=== PATIENT | female | born 2000 | race Caucasian/White ===

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

== ENCOUNTER → 2022-03-13 12:14 | Outpatient (BNVA) | payer BC, MEDICAID, SELFPAY | PROVIDERS: PCP Family Medicine; Visit Provider Family Medicine | DX: Z30.42 Encounter for surveillance of injectable contraceptive (principal) | CPT/HCPCS: 84702 ==

== ENCOUNTER → 2023-01-06 16:05 | Outpatient (BNVA) | payer BC, MEDICAID, SELFPAY | PROVIDERS: PCP Family Medicine; Visit Provider Nurse Practitioner Family | DX: Z30.09 Encounter for other general counseling and advice on contraception (principal) | CPT/HCPCS: 81025 ==

== ENCOUNTER 2023-05-31 02:06 | Emergency (ER) | payer BC, MEDICAID, SELFPAY ==
[2023-05-31 02:12] VITALS: BP 96/81; PULSE 85; RESP 16; TEMP 36.4; O2SAT 98; BMI 27.3
--- NOTE | 2023-05-31 02:34 | XRR_ITS ---
PROCEDURE INFORMATION: Exam: XR Chest Exam date and time: 05/31/2023 2:38 AM Age: 23 years old Clinical indication: Cough; Additional info: Cough, post-tussive emesis TECHNIQUE: Imaging protocol: Radiologic exam of the chest. Views: 1 view. COMPARISON: No relevant prior studies available. FINDINGS: Lungs: The lung bases are suboptimally assessed due to technique however the upper lungs are clear of focal consolidation. Pleural spaces: Unremarkable. No pleural effusion. No pneumothorax. Heart/Mediastinum: Cardiac silhouette appears normal in size. No obvious vascular congestion. Bones/joints: No acute osseous findings. Other findings: Single view was submitted. XR/XR chest 1V portable [id number] IMPRESSION: No obvious acute consolidation. Suboptimal lung base assessment. Followup including lateral view may be obtained if clinically indicated.
[2023-05-31] MEDS: dexamethasone 4 mg Tablet 10 MG PO (02:44)
[2023-05-31] MEDS: guaiFENesin-codeine UDC 10 mL PO (02:45)
[2023-05-31] MEDS: lidocaine 2% viscous 15 ML, aluminum-mag hydrox-simethicon 30 ML, sucralfate oral liq 1 GM PO (02:45)
[2023-05-31 02:46] VITALS: BP 100/80; PULSE 113; RESP 16; O2SAT 98
--- NOTE | 2023-05-31 02:48 | W.ED.URI ---
HPI - URI/Sore Throat General: Chief Complaint: Upper Respiratory Infection Stated Complaint: thoat / head / chest pain Time Seen by Provider: 05/31/23 02:08 Source: patient History of Present Illness: 23-year-old female who says she has had a cough for 2 weeks. She presents after multiple episodes of posttussive emesis this morning. She says that her cough has been so bad she vomits and has done so several times. She is also complaining of a burning throat pain as well as bilateral ear pain. No fever MD elicited complaint: cough, sore throat, rhinorrhea and nasal congestion Onset (ago): hour(s) Consistency: constant Severity: moderate Description of mucous: clear Able to tolerate fluids by mouth: No (Not for the past couple of hours) Exacerbating factors: swallowing and deep breaths Relieving factors: NSAID Associated symptoms: Reports chest pain (Tightness), cough, fever(s), headache(s) ( From coughing ), nausea, rhinorrhea, short of breath, sore throat and vomiting; Deny abdominal pain, change in voice, chills or congestion Review of Systems Const: Reports: fever(s); Denies: chills ENMT: Reports: throat pain Card: Reports: chest pain (Tightness) Resp: Reports: non-productive cough; Denies: dyspnea GI: Reports: nausea and vomiting; Denies: abdominal pain Skin/Breast: Denies: rash Neuro: Reports: headache(s) ( From coughing ) PFS ED PFSH: Medical History Acute bacterial sinusitis Bilateral impacted cerumen Bilateral otitis media Encounter for Depo-Provera contraception Nasal congestion Patient is a currently breast-feeding mother Surgical History Hx of tonsillectomy Family History Grandmother Cancer Grandfather Diabetes Mother Hypertension Seizure Social History Smoking and tobacco status: never smoked Alcohol intake: never Substance/Drug Use: never Adopted: No Caregiver/support person: No Lives independently: No Sexually active: Yes Do you think of yourself as: Straight/Heterosexual Current gender identity: Female Female Reproductive History: Date of last menstrual period: 05/21/23 Physical Exam Const: COMMON NORMALS: no acute distress GENERAL APPEARANCE: cooperative; not ill appearing and not frail appearing HENMT: COMMON NORMALS: normocephalic, atraumatic, TM's normal bilaterally and Normal external nose present HEAD & SCALP: normocephalic and atraumatic FACE & SINUS: normal facial exam and face symmetric NOSE: Normal external nose present TYMPANIC MEMBRANE: TM's normal bilaterally MOUTH: Normal oral and palatal mucosa present THROAT: posterior oropharynx normal Eye: COMMON NORMALS: Equal, round and reactive pupils present and EOMs intact bilaterally PUPIL: Yes Equal, round and reactive pupils present Neck/C-Spine: GENERAL: Yes trachea midline Chest: CHEST: Yes Symmetrical chest wall rise Resp: COMMON NORMALS: normal respiratory effort, No retractions, No use of accessory muscles and clear to auscultation bilaterally AUSCULTATION: clear to auscultation bilaterally Cardio: COMMON NORMALS: regular rate and regular rhythm RATE: regular rate RHYTHM: regular rhythm GI: COMMON NORMALS: Normal to inspection, nondistended, normoactive bowel sounds present Extremity: COMMON NORMALS: no pedal edema Neuro: DIOR COMA SCALE: document GCS findings [place] coma scale eye opening: Spontaneous [place] coma scale verbal response: Orientated [place] coma scale motor response: Obey commands [place] coma scale total score: 15 SENSORY EXAM: Yes extremities (intact) Psych: COMMON NORMALS: speech normal SPEECH: Yes normal speech Skin: COMMON NORMALS: no rashes or lesions noted GENERAL SKIN EXAM: no rashes or lesions noted Course Vital Signs: Vital signs: Vital Signs Temperature 97.5 F L 05/31/23 04:24 Pulse Rate 113 H 05/31/23 04:24 Respiratory Rate 16 05/31/23 04:24 Blood Pressure 100/80 05/31/23 04:24 Pulse Oximetry 98 05/31/23 04:24 MDM - URI/Sore Throat Medical Decision Making Chest x-ray is negative. Rapid strep negative. No coughing or vomiting here. Lab Data Radiology Impressions Chest X-Ray 05/31/23 02:34 IMPRESSION: No obvious acute consolidation. Suboptimal lung base assessment. Followup including lateral view may be obtained if clinically indicated. Laboratory Results Group A Strep Rapid Negative (Negative) 05/31/23 02:50 Discharge Plan Discharge Patient Disposition: Home Clinical Impression: Upper respiratory infection Condition: Stable Prescriptions: New codeine-guaifenesin 10-100 mg/5 mL liquid 5 ml PO Q6H PRN (Reason: cough) Qty: 100 0RF No Action sertraline 50 mg tablet See Rx Instructions .ROUTE .COMPLEX Qty: 45 0RF Dose Instruction: TAKE 1 TABLET BY MOUTH EVERY DAY. IF SYMPTOMS PERSIST AFTER 2 WEEKS, MAY INCREASE TO 1 & 1/2 TABLETS ONCE A DAY Rx Instructions: TAKE 1 TABLET BY MOUTH EVERY DAY. IF SYMPTOMS PERSIST AFTER 2 WEEKS, MAY INCREASE TO 1 & 1/2 TABLETS ONCE A DAY Discharge Orders: Discharge ED (Routine); Ordered 05/31/23 Ordered By: Jefferson Sheldon Referrals: Sd Navarro MD [Primary Care Provider] - 4-7 days Patient Instructions: Upper Respiratory Infection (ED), Opioid Safety, Pain Management Activity Restrictions/Additional Instructions: The steroid you were given in the ER will begin to work in about 12 hours, and lasts about 4 days. Use cough syrup as needed for coughing fits. Return for worsening shortness of breath, vomiting liquids despite treatment, other concerning symptoms. Coding Level of Care Code ED Medical Assistant Secretary for Jassi Ceja
[2023-05-31 03:44] LABS: Rapid Strep A Test Negative (Negative)
[2023-05-31 04:24] VITALS: BP 100/80; PULSE 113; RESP 16; TEMP 36.4; O2SAT 98
== END 2023-05-31 04:25 | disposition home or self-care (01) ==
PROVIDERS: Emergency Provider Emergency Medicine; PCP Family Medicine
DX: J06.9 Acute upper respiratory infection, unspecified (principal)
CPT/HCPCS: 71045; 87081; 87880; 99284; J8540

== ENCOUNTER 2024-01-12 09:02 | Outpatient (CLI) | payer BC, MEDICAID, SELFPAY ==
[2024-01-12 09:38] LABS: Basophils % 0.4 %; Eosinophils # 0.1 10^3/uL (0.0-0.8); Eosinophils % 1.8 %; Hematocrit 42.7 % (36-47); Lymphocytes # 2.3 10^3/uL (0.8-4.8); Lymphocytes % 41.6 %; Mean Corpuscular HGB Conc 35.1 g/dL (30-55); Mean Corpuscular Volume 82.6 fl (85-98); Mean Platelet Volume 10.4 fL (7.4-10.4); Monocytes # 0.4 10^3/uL (0.2-0.9); Monocytes % 6.4 %; Neutrophils # 2.72 10^3/uL (1.8-7.7); Neutrophils % 49.4 %; Nucleated Red Blood Cells % 0 %; Platelet Count 250 10^3/cmm (157-399); Red Blood Count 5.17 10^6/uL (3.85-5.65); Red Cell Distribution Width 11.9 % (12.1-15.1)
[2024-01-12 10:09] LABS: Alanine Aminotransferase 14 U/L (0-33); Albumin Level 4.4 g/dL (3.5-5.2); Alkaline Phosphatase 78 U/L (35-105); Anion Gap 13.5 (5-19); Aspartate Amino Transferase 17 U/L (0-32); Blood Urea Nitrogen 11 mg/dL (6-20); Calcium 8.8 mg/dL (8.5-10.5); Carbon Dioxide 24 mmol/L (22-29); Chloride 107 mmol/L (98-107); Globulin 2.9 g/dL (1.3-4.6); Glomerular Filtration Rate 105.6 mL/min (90-130); Glucose 93 mg/dL (65-115); Iron 102 ug/dL (37-145); Osmolality Calculated 289 mOsm/kg (285-295); Potassium 4.5 mmol/L (3.5-5.1); Sodium 140 mmol/L (136-145); Total Bilirubin 0.9 mg/dL (0.15-1.2); Total Iron Binding Capacity 283 mcg/dl; Total Protein 7.3 g/dL (6.6-8.7); Unsaturated Iron Binding 181 ug/dL (112-347)
[2024-01-12 10:46] LABS: Hepatitis C Virus Antibody Non-Reactive (Nonreactive)
[2024-01-13 12:24] LABS: COMPLEMENT, TOTAL (CH50) 55 U/mL (31-60)
[2024-01-13 12:35] LABS: COMPLEMENT COMPONENT C3C 125 mg/dL (83-193); COMPLEMENT COMPONENT C4C 24 mg/dL (15-57)
[2024-01-13 17:44] LABS: CENTROMERE B ANTIBODY <1.0 NEG AI (<1.0 NEG); JO-1 ANTIBODY <1.0 NEG AI (<1.0 NEG); RNP ANTIBODY <1.0 NEG AI (<1.0 NEG); SCL-70 ANTIBODY <1.0 NEG AI (<1.0 NEG); SJOGREN'S ANTIBODY (SS-A) <1.0 NEG AI (<1.0 NEG); SM ANTIBODY <1.0 NEG AI (<1.0 NEG); SS-B <1.0 NEG AI (<1.0 NEG)
[2024-01-14 08:14] LABS: THYROID PEROXIDASE ANTIBODIES 38 IU/mL (<9)
[2024-01-14 12:00] LABS: ANA SCREEN, IFA POSITIVE (NEGATIVE)
[2024-01-15 22:45] LABS: DNA AB (DS) CRITHIDIA,IFA NEGATIVE (NEGATIVE)
== END 2024-01-12 09:03 | disposition home or self-care (01) ==
LOC: LAB 09:03
PROVIDERS: PCP Family Medicine; Visit Provider Nurse Practitioner Family
DX: L29.9 Pruritus, unspecified (principal); R76.0 Raised antibody titer
CPT/HCPCS: 36415; 80053; 83540; 83550; 85025; 86160; 86162; 86235; 86255; 86376; 86803

== ENCOUNTER → 2024-06-22 08:46 | Outpatient (BNVA) | payer BC, MEDICAID, SELFPAY | PROVIDERS: PCP Family Medicine; Visit Provider Specialist | DX: M67.432 Ganglion, left wrist (principal) | CPT/HCPCS: 73110 ==

== ENCOUNTER → 2024-06-27 12:05 | Outpatient (BNVA) | payer BC, MEDICAID, SELFPAY | PROVIDERS: PCP Family Medicine; Visit Provider Internal Medicine Rheumatology | DX: R76.8 Other specified abnormal immunological findings in serum (principal); Z79.899 Other long term (current) drug therapy | CPT/HCPCS: 36415; 80076; 82565; 84439; 84443; 85025 ==